=== PATIENT | female | born 1990 | race Caucasian/White ===

== ENCOUNTER 2025-06-23 09:37 | Emergency (ER) | payer OTHER, SELFPAY ==
[2025-06-23 09:39] VITALS: BP 133/86
[2025-06-23 09:55] LABS: Hematocrit 42.0 % (37.0-47.0); Hemoglobin 14.2 g/dL (12.0-16.0); Mean Corp Hgb Conc. 33.8 g/dL (33.0-37.0); Mean Corpuscular Volume 90.3 fL (81.0-99.0); Nucleated Red Blood Cells % 0 %; Platelet Count 259 10^3/uL (130-400); Red Cell Dist. Width 11.4 % (11.5-14.5)
[2025-06-23 10:13] LABS: HCG, Serum Qualitative Screen Negative
[2025-06-23 10:18] LABS: Alkaline Phosphatase 77 U/L (38-126); Blood Urea Nitrogen 7 mg/dl (7-17); Calcium 9.2 mg/dl (8.4-10.2); Carbon Dioxide 24 mmol/L (22-30); Chloride 107 mmol/L (98-107); Glucose 100 mg/dl (70-99); Potassium 4.0 mmol/L (3.5-5.1); Sodium 141 mmol/L (135-145); eGFR > 60.00
[2025-06-23 10:19] LABS: ALT (SGPT) 13 U/L (0-35); AST (SGOT) 18 U/L (14-36); Albumin 4.4 g/dl (3.5-5.0); Total Protein 7.2 g/dl (6.3-8.2)
[2025-06-23] MEDS: TORADOL 15 MG IV (11:25)
[2025-06-23] MEDS: NSS 1000 IV (11:28)
[2025-06-23 11:29] VITALS: BP 128/108
[2025-06-23 11:31] VITALS: BMI 25.8
--- NOTE | 2025-06-23 11:37 | ED.GENMED ---
History of Present Illness
General
Chief Complaint: Abdominal Pain
Source: patient
Exam Limitations: none
Time Seen by Provider: 06/23/25 10:53
Nursing documentation reviewed up to this point in time: agreed with
History of Present Illness
History of Present Illness:
Patient is a 35-year-old female who presents to the emergency department with 1.5 weeks of lower abdominal pain. Reported to me somewhat constant and across her lower abdomen similar to prior episodes of diverticulitis. She was seen by her primary
care physician yesterday and started on a course of Augmentin. This morning, patient noticed some bright red blood in the toilet bowl. She is unsure if this may be the beginning of her menstrual cycle or rectal bleeding.
Parents have been giving her a clear liquid diet, low fiber over the past few days. She has not had any fevers, vomiting.
Her mom states since beginning the Augmentin she has complained of some mild dysuria.
Review of Systems
Review of Systems
Allergies reviewed?: Yes
All Other Systems: ROS reviewed and negative except as documented in HPI and ROS
Phy Exam
Physical Exam
Physical Exam:
Vitals: Hypertensive, tachycardic on arrival. Afebrile
General: Patient is well appearing, no acute distress. Nontoxic appearing
Skin: Warm and dry, no rashes or lesions
Head: Normocephalic, atraumatic
Eyes: Sclera nonicteric. EOMs intact. No nystagmus.
Throat: Protecting airway
Neck: Normal ROM, no cervical spine tenderness, no meningismus
Cardiac: Tachycardic, normal rhythm, no murmurs.
Pulm: Normal respiratory effort. Lungs clear bilaterally
Abdomen: Abdomen soft. Diffuse tenderness across bilateral lower abdomen. No rebound tenderness or guarding. No CVA tenderness.
Rectal: No evidence of rectal bleeding. Soft brown, heme-negative stool.
Extremities: No evidence of cyanosis or edema
Neuro: AAOx3. Grossly intact.
Psychiatric: Normal affect.
Course
Orders/Labs/Results
Orders:
Orders
06/23/25 09:43
Test Result ONCE
06/23/25 09:47
Complete Blood Count/With Diff Urgent
Comprehensive Metabolic Panel Urgent
HCG, Serum Qualitative Screen Urgent
06/23/25 11:08
CT Abd/pelvis W Iv Cont Urgent
Comment: hx diverticulitis
Reason For Exam: LLQ pain
0.9% Sodium Chloride 1000 ml [Nss] 1,000 ml IV BOLUS
Ketorolac [Toradol] 15 mg IV NOW STA
06/23/25 14:05
Urinalysis Reflex To Culture Urgent
Date Specimen was Collected: 06/23/25
Time Specimen was Collected: 13:58
Urine Microscopic Reflex Cult Urgent
Urine Culture Urgent
CARLINE Source: U
Specimen Description:
Date Specimen was Collected: 06/23/25
Time Specimen was Collected: 13:58
Abnormal Lab Results
06/23/25 06/23/25
09:47 14:05
RDW 11.4 L %
(11.5-14.5)
MPV 10.9 H fL
(7.4-10.4)
Neutrophils % 77.9 H %
(42.2-75.2)
Lymphocytes % 14.6 L %
(20.5-51.1)
Glucose 100 H mg/dl
(70-99)
Ur Occult Blood Reflex 4+ A
(Negative)
Leukocyte Esterase Rfl 1+ A
(Negative)
Urine RBC >100 A /HPF
(0-2)
Urine Bacteria (Reflex) Few A
(Negative)
Urine Albumin (Reflex) 2+ A
(Neg - Trace)
06/23/25 09:47
06/23/25 09:47
Vital Signs
Initial and Last Documented VS:
Initial Vital Signs
Temp Pulse Resp BP Pulse Ox
98.0 F 119 20 133/86 100
06/23/25 09:39 06/23/25 09:39 06/23/25 09:39 06/23/25 09:39 06/23/25 09:39
Last Documented Vital Signs
Temp Pulse Resp BP Pulse Ox
98.0 F 99 18 125/73 99
06/23/25 14:10 06/23/25 14:10 06/23/25 14:10 06/23/25 14:10 06/23/25 14:10
MDM/Problems Addressed
Differential Diagnosis Includes:
Not limited to: Acute diverticulitis, complicated diverticulitis including perforation or abscess, UTI, pyelonephritis, appendicitis etc.
MDM/Problems Addressed:
35-year-old female with approximately 1.5 weeks of lower abdominal discomfort. No fevers or vomiting. No urinary symptoms. Patient has history of diverticulitis and was started on course of Augmentin yesterday by PCP.
Vitals and physical exam as above. Somewhat diffuse tenderness across lower abdomen. No evidence of rectal bleeding on exam� suspect menstrual bleeding.
Labs sent prior to evaluation without clinically significant findings. No lekocytosis. Hemoglobin stable.
Will treat pain and give IV fluids. Will obtain CT scan to rule out complicated diverticulitis vs other intra-abdominal source of pain.
Update: CT scan reveals acute sigmoid diverticulitis without evidence of perforation or abscess. Patient well appearing with subjective improvement in symptoms following toradol. She is afebrile without evidence of complicating factors on imaging �
feel stable for discharge home on oral anabiotic. Advised to continue Augmentin as prescribed by PCP and follow up with G.I. doctor. Strict return precautions discussed.
Chronic conditions affecting care:
History of diverticulitis
Acute Exacerbation and/or Progression of Chronic Illness:
Acute diverticulitis
*Radiology
Radiology exam reviewed: radiology read reviewed
*Pulse Oximetry
SaO2: 100
Oxygen Mode of Delivery: Room air
Patient hypoxic: no
*EKG
Interpreted by ED Provider?: NA
*Chemist Internship Interpretation
Rate: Chemist Internship- N/A
*Critical Care Note
Total Time (30-74mins, 75-104mins- exclusive of procedures): Not Applicable
ED Attending Note
-
Portions of this chart may have been created with voice recognition software.� Occasional wrong word or��sound alike� substitutions may have occurred due to the inherent limitations of voice recognition software.
Discharge Plan
Departure
Patient Disposition: Home (Routine Discharge)
Date of Disposition: 06/23/25
Time of Disposition: 13:49
Patient with high blood pressure during this ER visit?: Yes
Condition: Good
Discharge Problem:
Acute diverticulitis
Instructions: Clear Liquid Diet, Diverticulitis (DC), BLOOD PRESSURE
Referrals:
Jerad Piedra MD [Family Provider, Family Practice] - Follow up in 5-7 days
Activity Restrictions/Additional Instructions:
RETURN TO THE EMERGENCY DEPARTMENT WITH ANY FEVER, CHILLS, PERSISTENT/WORSENING ABDOMINAL PAIN, VOMITING, WORSENING IN CURRENT SYMPTOMS, OR ANY OTHER CONCERNS
- As discussed�CT scan showed findings consistent with acute diverticulitis of the sigmoid colon. Your lab work was unremarkable.
- Please continue to take oral antibiotics, Augmentin twice a day for the next 10 days as prescribed by your primary care provider. You can take Tylenol and/or Motrin as needed for pain. I would follow a clear liquid diet over the next few days
and slowly advance to low fiber.
- Follow-up with primary care and your GI specialist for further evaluation/management and to ensure that symptoms are improving.
Monitor your symptoms closely and return to the emergency department with any acute worsening/new symptoms or any other concerns
Interventions
Interventions:
*Risk Screen - Suicide Last Done: 06/23/25 09:39
*General Assessment Last Done: 06/23/25 09:39
*Neglect/Abuse Screening Last Done: 06/23/25 11:32
*ED- Fall Risk Assessment Last Done: 06/23/25 11:32
*ED COVID-19 Vaccine History Last Done: 06/23/25 11:32
*ED Influenza Vaccine History Last Done: 06/23/25 11:32
*Nursing Disposition Last Done: 06/23/25 14:10
FS-Zffxgy-Shcdyipwcl Assessment Last Done: 06/23/25 11:29
Discharge Date and Time
Discharge Date/Time: 06/23/25 14:12
Print Language: LITHUANIAN
[2025-06-23 12:19] VITALS: BP 127/64
[2025-06-23 13:53] VITALS: BP 125/73
[2025-06-23 14:09] VITALS: BP 125/73
[2025-06-23 14:10] VITALS: BP 125/73
[2025-06-23 14:33] LABS: Urine Character Slightly Cloudy (Clear)
[2025-06-23 15:18] LABS: Urine Red Blood Cell >100 /HPF (0-2); Urine Squamous Cell >30 /LPF (Few); Urine White Cell 0-2 /HPF (0-5)
== END 2025-06-23 14:12 | disposition home or self-care (01) ==
LOC: EMR 09:37
PROVIDERS: Emergency Medicine; Physician Assistant; EMERGENCY PHYSICIAN Emergency Medicine; FAMILY PHYSICIAN Family Medicine
DX: K57.32 Diverticulitis of large intestine without perforation or abscess without bleeding (principal); R03.0 Elevated blood-pressure reading, without diagnosis of hypertension
CPT/HCPCS: 99284; 96374; 96361; 74177; 80053; 81003; 81015; 84703; 85025; 87086; Q9967